=== PATIENT | female | born 1985 | race African-American/Black ===

== ENCOUNTER 2018-05-09 13:34 | Emergency (ER) | payer MEDICAID ==
[2018-05-09] MEDS ORDERED: ONDANSETRON 4 MG ODT TABLET SL ONE (14:17)
[2018-05-09 14:34] LABS: URINE APPEARANCE CLEAR; URINE BILIRUBIN NEGATIVE (NEGATIVE); URINE BLOOD MODERATE (NEGATIVE); URINE COLOR YELLOW; URINE GLUCOSE (UA) NEGATIVE (NEGATIVE); URINE KETONE NEGATIVE (NEGATIVE); URINE LEUKOCYTE ESTERASE NEGATIVE (NEGATIVE); URINE NITRITE NEGATIVE (NEGATIVE); URINE PROTEIN NEGATIVE (NEGATIVE); URINE UROBILINOGEN 0.2 E.U./dL (0.20 - 1.00)
[2018-05-09 14:37] LABS: HCG,QUALITATIVE URINE NEGATIVE (NEGATIVE)
--- NOTE | 2018-05-09 14:40 | Emergency Department Record ---
History of Present Illness - General Chief complaint: Nausea, Vomiting, Diarrhea Stated complaint: DIARREHEA, Time Seen by Provider: 05/09/18 13:39 Source: Patient Mode of Arrival: Ambulatory Limitations: No limitations - History of Present Illness Initial comments: The patient is here due to mild nausea, vomiting and diarrhea for the last 2 days. She has had multiple episodes of loose stools today but no vomiting. There has been no fever, AP, or dysuria. MD complaint: Diarrhea, Nausea, Vomiting Onset/Timin -: Days(s) Improves with: None Worsens with: None Associated Symptoms: Nausea/vomiting - Related Data Home Medications Medication Instructions Recorded Confirmed Last Taken No Home Med [NO HOME MEDS] 05/09/18 05/09/18 Unknown Allergies Allergy/AdvReac Type Severity Reaction Status Date / Time morphine Allergy HIVES Verified 05/09/18 14:01 Travel Screening - Travel/Exposure Within Last 30 Days Have you traveled within the last 30 days?: No Review of Systems Constitutional: Denies: Chills, Fever Eyes: Denies: Eye discharge ENT: Denies: Congestion Respiratory: Denies: Cough, Dyspnea Past Medical History - SOCIAL HISTORY Smoking Status: Never smoker Alcohol Use: None Drug Use: None - RESPIRATORY Hx Respiratory Disorders: No - CARDIOVASCULAR Hx Cardio Disorders: No - NEURO Hx Neuro Disorders: No - GI Hx GI Disorders: No - Hx Genitourinary Disorders: No - ENDOCRINE Hx Endocrine Disorders: No - MUSCULOSKELETAL Hx Musculoskeletal Disorders: No - PSYCH Hx Psych Problems: No - HEMATOLOGY/ONCOLOGY Hx Hematology/Oncology Disorders: No Family Medical History Any Significant Family History?: No Physical Exam - General General Appearance: Alert, Oriented x3, Cooperative, No acute distress - Head Head exam: Atraumatic, Normocephalic - Eye Eye exam: Normal appearance, PERRL - ENT Throat exam: Normal inspection. negative: Tonsillar erythema, Tonsillar exudate - Neck Neck exam: Normal inspection, Full ROM. negative: Tenderness - Respiratory Respiratory exam: Normal lung sounds bilaterally. negative: Respiratory distress - Cardiovascular Cardiovascular Exam: Regular rate, Normal rhythm, Normal heart sounds - GI/Abdominal GI/Abdominal exam: Soft, Normal bowel sounds. negative: Distended, Guarding, Rebound, Rigid, Tenderness - Extremities Extremities exam: Normal inspection, Full ROM, Normal capillary refill. negative: Tenderness - Neurological Neurological exam: Alert, Normal gait. negative: Abnormal gait, Motor sensory deficit Course Vital Signs 05/09/18 13:58 Temperature 98.5 F Pulse Rate 64 Respiratory 22 Rate Blood Pressure 117/87 Pulse Ox 98 - Reevaluation(s) Reevaluation #1: The patient suddenly became angry due to believing she was waiting to long and left the ED prior to full evaluation. 05/09/18 15:01 Medical Decision Making - Data Complexity MDM Data: Labs Ordered and/or Reviewed - Lab Data Lab Results 05/09/18 Range/Units 14:30 Urine HCG, Qual Negative (NEGATIVE) Disposition Disposition: Discharge Disposition: Against Medical Advice Condition: (2) Stable Instructions: Acute Nausea and Vomiting (ED) Forms: Patient Portal Access Time of Disposition: 15:02 Quality - Quality Measures Quality Measures: N/A - Blood Pressure Screening View Details: Yes Does Patient Have Any of the Following: No Blood Pressure Classification: Pre-Hypertensive BP Reading Systolic Measurement: 117 Diastolic Measurement: 87 Screening for High Blood Pressure: < Pre-Hypertensive BP, F/U Documented > [ [id number]] Pre-Hypertensive Follow-up Interventions: Referral to alternative/primary care provider.
[2018-05-09 14:48] LABS: URINE SQUAMOUS EPITHELIAL CELL 0 - 2 /hpf; URINE WBC 0 - 2 (0-2/hpf)
[2018-05-09 14:49] LABS: URINE BACTERIA NONE SEEN
== END 2018-05-09 15:01 | disposition left against medical advice (07) ==
LOC: ER 13:34
DX: R11.2 Nausea with vomiting, unspecified (principal); R19.7 Diarrhea, unspecified
CPT/HCPCS: 81001; 81025; 99282